=== PATIENT | male | born 1995 | race Two or more races ===

== ENCOUNTER 2021-12-14 23:07 | Emergency (ER) | payer SELFPAY ==
[~2021-12-14] VITALS: Ht 175.3 cm; Wt 68.2 kg
[2021-12-14] MEDS ORDERED: HALOPERIDOL LACTATE 5MG/ML VIAL IM ONE (23:30)
[2021-12-14] MEDS ORDERED: MIDAZOLAM HCL 2 MG/2 ML VIAL IM ONE (23:30)
[2021-12-15 00:21] LABS: BASOPHILS % 0.3 % (0.0-2.0); EOSINOPHILS % 0.5 % (0.0-5.0); HEMATOCRIT. 45.7 % (42.0-52.0); HEMOGLOBIN. 15.5 g/dL (14.0-18.0); MEAN CORPUSCULAR VOLUME 91.2 fL (80.0-94.0); MEAN PLATELET VOLUME 8.9 fl (7.4-10.4); MONOCYTES % 5.3 % (2.0-8.0); NEUTROPHILS % 76.9 % (40.0-76.0); PLATELET 237 x1000/uL (130-400); RED CELL DISTRIBUTION WIDTH 13.1 % (11.6-14.6)
[2021-12-15 00:33] LABS: CHLORIDE 105 mEq/L (98-107)
[2021-12-15 00:43] LABS: ETHANOL BLOOD < 10 mg/dL
[2021-12-15 01:00] VITALS: BP 137/73
== END 2021-12-15 01:20 | disposition home or self-care (01) ==
LOC: ER 23:07
DX: G93.40 Encephalopathy, unspecified (principal)
CPT/HCPCS: 36415; 80053; 80307; 80320; 80329; 85025; 93005; 96372; 99284; J1630; J2250; G0480